=== PATIENT | male | born 1985 | race Caucasian/White ===

== ENCOUNTER 2016-07-31 15:11 | Emergency (ER) | payer OTHER ==
[2016-07-31 17:14] VITALS: BP 138/90
--- NOTE | 2016-07-31 18:01 | ED ---
Irving Basurto SooYoung, scribed for Martell Hernandez MD on 07/31/16 at 1547 . 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 Pt states that he's been in therapy for the past 3-4 months for his depression, and today he "spiraled down." He was washing dishes and had a panic attack. Sx: crying, hyperventilating for approx 10-15 minutes. Denies SI, HI. Pt is not on any medications. He states his sleep and appetite have been OK. - History Of Current Complaint Chief Complaint: EDMentalHealth Stated Complaint: MHE Time Seen by Provider: 07/31/16 15:25 Hx Obtained From: Patient Onset/Duration: Still Present Timing: Constant Severity Initially: Moderate Severity Currently: Moderate Associated Signs And Symptoms: Positive: Recently Depressed - Allergies/Home Medications Allergies/Adverse Reactions: Allergies Allergy/AdvReac Type Severity Reaction Status Date / Time No Known Drug Allergy Allergy none Verified 07/31/16 15:13 PMH/Surg Hx/FS Hx/Imm Hx Previously Healthy: No Psychiatric History: Reports: Hx Depression - Immunization History Date of Tetanus Vaccine: unsure but states UTD Infectious Disease History: No Infectious Disease History: Denies: Traveled Outside the [place] in Last 30 Days - Social History Occupation: Employed Full-time Lives: With Family Alcohol Use: Rare Hx Substance Use: No Substance Use Type: Reports: None Hx Tobacco Use: No Smoking Status (MU): Never Smoked Tobacco Review of Systems Negative: Fever Positive: Depressed All Other Systems Reviewed And Are Negative: Yes Physical Exam Triage Information Reviewed: Yes Vital Signs On Initial Exam: Initial Vitals Temp Pulse Resp BP Pulse Ox 97.6 F 69 18 155/92 99 07/31/16 15:13 07/31/16 15:13 07/31/16 15:13 07/31/16 15:13 07/31/16 15:13 Vital Signs Reviewed: Yes Appearance: Positive: Well-Appearing, No Pain Distress Skin: Positive: Warm, Skin Color Reflects Adequate Perfusion, Dry Head/Face: Positive: Normal Head/Face Inspection Eyes: Positive: Normal ENT: Positive: Normal ENT inspection Neck: Positive: Supple, Nontender Respiratory/Lung Sounds: Positive: Clear to Auscultation, Breath Sounds Present Cardiovascular: Positive: RRR Abdomen Description: Positive: Nontender, Soft Bowel Sounds: Positive: Present Musculoskeletal: Positive: Normal Neurological: Positive: Normal Psychiatric: Positive: Other - pos: flat affect Diagnostics - Vital Signs Vital Signs Temp Pulse Resp BP Pulse Ox 07/31/16 15:13 97.6 F 69 18 155/92 99 - Laboratory Lab Statement: Any lab studies that have been ordered have been reviewed, and results considered in the medical decision making process. Altered Mental Statu Course/Dx - Course Course Of Treatment: Medically cleared for MHE at 1530 - Diagnoses Discharge Diagnoses: Adjustment disorder with anxiety - Provider Notifications Discussed Care Of Patient With: Dr. Zavaleta Time Discussed With Above Provider: 19:00 - change of shift Discharge - Discharge Plan Condition: Stable Disposition: HOME Referrals: No Primary Care Phys,NOPCP [Primary Care Provider] - The documentation as recorded by the Irving mart SooYoung accurately reflects the service I personally performed and the decisions made by me, Martell Hernandze MD.
== END 2016-07-31 17:43 | disposition home or self-care (01) ==
LOC: ED 15:11
DX: F43.22 Adjustment disorder with anxiety (principal); F32.9 Major depressive disorder, single episode, unspecified
CPT/HCPCS: 99282

== ENCOUNTER 2016-10-22 10:09 | Emergency (ER) | payer OTHER ==
[2016-10-22 11:11] LABS: Hematocrit 50 % (42-52); Hemoglobin 16.9 g/dl (14.0-18.0); Mean Corpuscular HGB Conc 34 g/dl (31-36); Mean Corpuscular Hemoglobin 30 pg (27-31); Mean Corpuscular Volume 88 fL (80-94); Mean Platelet Volume 8 um3 (7.4-10.4); Red Cell Distribution Width 12 % (10.5-15); White Blood Count 12.9 10^3/ul (3.5-10.8)
--- NOTE | 2016-10-22 11:16 | RAD ---
HISTORY: Shortness of breath, pressure COMPARISONS: None VIEWS: 2: Frontal dual-energy and lateral views of the chest. FINDINGS: CARDIOMEDIASTINAL SILHOUETTE: The cardiomediastinal silhouette is normal. VIKA: The vika are normal. PLEURA: The costophrenic angles are sharp. No pleural abnormalities are noted. LUNG PARENCHYMA: The lungs are clear. ABDOMEN: The upper abdomen is clear. There is no subphrenic gas. BONES AND SOFT TISSUES: No bone or soft tissue abnormalities are noted. OTHER: None. IMPRESSION: NO ACTIVE CARDIOPULMONARY DISEASE.
[2016-10-22 11:35] LABS: Albumin 4.2 g/dL (3.2-5.2); BUN/Creatinine Ratio 12.7 (8-20); C Reactive Protein 6.15 mg/L (< 5.00); Calcium 9.3 mg/dL (8.6-10.3); EGFR Non-African American 86.3 (>60); Globulin 3.1 g/dL (2-4); Total Bilirubin 0.5 mg/dL (0.2-1.0); Total Protein 7.3 g/dL (6.4-8.9)
[2016-10-22 12:03] LABS: Potassium 4.3 mmol/L (3.5-5.0)
[2016-10-22 13:05] VITALS: BP 90/45
--- NOTE | 2016-10-23 17:18 | ED ---
Dung Basurto Aidan, scribed for Neymar Ivan MD on 10/22/16 at 1054 . Shortness of Breath - HPI Summary HPI Summary: 30 y/o male presents to the ED with a complaint of acute, constant, moderate SOB that began when the patient woke up this morning at 0500. He has had similar symptoms before when he last had a humidifier in his room, however, the SOB resolved after leaving the room for several hours. This time, he fell asleep with a humidifier in his room again because his was congested. Pt denies any CP, cough, or fever. He did, however, have a sore throat several days ago. Lastly, he mentioned taking a 2 [address] trip to [place] recently. No other history was mentioned. - History of Current Complaint Chief Complaint: EDShortnessOfBreath Time Seen by Provider: 10/22/16 10:31 Hx Obtained From: Patient Onset/Duration: Sudden Onset, Lasting Hours, Still Present Timing: Constant Current Severity: Moderate Dyspnea At: Rest Aggrevating Factors: Nothing Alleviating Factors: Nothing - unknown Associated Signs & Symptoms: Negative - sore throat that has subsided - Allergy/Home Medications Allergies/Adverse Reactions: Allergies Allergy/AdvReac Type Severity Reaction Status Date / Time No Known Drug Allergy Allergy none Verified 10/22/16 10:09 PMH/Surg Hx/FS Hx/Imm Hx Psychiatric History: Reports: Hx Depression Denies: Hx Eating Disorder, Hx of Violent Episodes Against Others - Immunization History Date of Tetanus Vaccine: unknown Infectious Disease History: No Infectious Disease History: Denies: Traveled Outside the [place] in Last 30 Days - Family History Known Family History: Positive: Hypertension - Social History Occupation: Employed Full-time Lives: With Family Alcohol Use: Rare Hx Substance Use: No Substance Use Type: Reports: None Hx Tobacco Use: No Smoking Status (MU): Never Smoked Tobacco Review of Systems Constitutional: Negative Eyes: Negative ENT: Negative Cardiovascular: Negative All Other Systems Reviewed And Are Negative: Yes Physical Exam - Summary Physical Exam Summary: VITAL SIGNS: Reviewed. GENERAL: Patient is a well-developed and nourished (MALE) who is lying comfortable in the stretcher. Patient is not in any acute respiratory distress. HEAD AND FACE: No signs of trauma. No ecchymosis, hematomas or skull depressions. No sinus tenderness. EYES: PERRLA, EOMI x 2, No injected conjunctiva, no nystagmus. EARS: Hearing grossly intact. Ear canals and tympanic membranes are within normal limits. MOUTH: Oropharynx within normal limits. NECK: Supple, trachea is midline, no adenopathy, no JVD, no carotid bruit, no c- spine tenderness, neck with full ROM. CHEST: Symmetric, no tenderness at palpation LUNGS: Clear to auscultation bilaterally. No wheezing or crackles. CVS: Regular rate and rhythm, S1 and S2 present, no murmurs or gallops appreciated. ABDOMEN: Soft, non-tender. No signs of distention. No rebound no guarding, and no masses palpated. Bowel sounds are normal. EXTREMITIES: FROM in all major joints, no edema, no cyanosis or clubbing. NEURO: Alert and oriented x 3. No acute neurological deficits. Speech is normal and follows commands. SKIN: Dry and warm Triage Information Reviewed: Yes Vital Signs On Initial Exam: Initial Vitals Temp Pulse Resp BP Pulse Ox 97.5 F 85 18 135/84 96 10/22/16 10:09 10/22/16 10:09 10/22/16 10:09 10/22/16 10:09 10/22/16 10:09 Vital Signs Reviewed: Yes - Emeli Coma Scale Coma Scale Total: 15 Diagnostics - Vital Signs Vital Signs Temp Pulse Resp BP Pulse Ox 10/22/16 10:32 18 10/22/16 10:09 97.5 F 85 18 135/84 96 - Laboratory Lab Results: Lab Results 10/22/16 10/22/16 10/22/16 Range/Units 10:50 10:50 10:50 WBC 12.9 H (3.5-10.8) 10^3/ul RBC 5.70 H (4.0-5.4) 10^6/ul Hgb 16.9 (14.0-18.0) g/dl Hct 50 (42-52) % MCV 88 (80-94) fL MCH 30 (27-31) pg MCHC 34 (31-36) g/dl RDW 12 (10.5-15) % Plt Count 163 (150-450) 10^3/ul MPV 8 (7.4-10.4) um3 Neut % (Auto) 79.5 (38-83) % Lymph % (Auto) 13.7 L (25-47) % Columbia % (Auto) 4.4 (1-9) % Eos % (Auto) 1.8 (0-6) % Baso % (Auto) 0.6 (0-2) % Absolute Neuts (auto) 10.2 H (1.5-7.7) 10^3/ul Absolute Lymphs (auto) 1.8 (1.0-4.8) 10^3/ul Absolute Monos (auto) 0.6 (0-0.8) 10^3/ul Absolute Eos (auto) 0.2 (0-0.6) 10^3/ul Absolute Basos (auto) 0.1 (0-0.2) 10^3/ul Absolute Nucleated RBC 0.01 10^3/ul Nucleated RBC % 0.1 D-Dimer, Quantitative < 200 (Less Than 230) ng/mL Sodium 137 (133-145) mmol/L Potassium 4.3 (3.5-5.0) mmol/L Chloride 104 (101-111) mmol/L Carbon Dioxide 27 (22-32) mmol/L Anion Gap 6 (2-11) mmol/L BUN 13 (6-24) mg/dL Creatinine 1.02 (0.67-1.17) mg/dL Est GFR ( Amer) 111.0 (>60) Est GFR (Non-Af Amer) 86.3 (>60) BUN/Creatinine Ratio 12.7 (8-20) Glucose 85 (70-100) mg/dL Lactic Acid (0.5-2.0) mmol/L Calcium 9.3 (8.6-10.3) mg/dL Total Bilirubin 0.50 (0.2-1.0) mg/dL AST 21 (13-39) U/L ALT 39 (7-52) U/L Alkaline Phosphatase 83 (34-104) U/L Total Creatine Kinase 66 (10-223) U/L CK-MB (CK-2) 1.2 (0.6-6.3) ng/mL Myoglobin 15.9 L (17.4-105.7) ng/mL Troponin I 0.00 (<0.04) ng/mL C-Reactive Protein 6.15 H (< 5.00) mg/L B-Natriuretic Peptide ( - 100) pg/mL Total Protein 7.3 (6.4-8.9) g/dL Albumin 4.2 (3.2-5.2) g/dL Globulin 3.1 (2-4) g/dL Albumin/Globulin Ratio 1.4 (1-3) 10/22/16 10/22/16 Range/Units 10:50 10:50 WBC (3.5-10.8) 10^3/ul RBC (4.0-5.4) 10^6/ul Hgb (14.0-18.0) g/dl Hct (42-52) % MCV (80-94) fL MCH (27-31) pg MCHC (31-36) g/dl RDW (10.5-15) % Plt Count (150-450) 10^3/ul MPV (7.4-10.4) um3 Neut % (Auto) (38-83) % Lymph % (Auto) (25-47) % Columbia % (Auto) (1-9) % Eos % (Auto) (0-6) % Baso % (Auto) (0-2) % Absolute Neuts (auto) (1.5-7.7) 10^3/ul Absolute Lymphs (auto) (1.0-4.8) 10^3/ul Absolute Monos (auto) (0-0.8) 10^3/ul Absolute Eos (auto) (0-0.6) 10^3/ul Absolute Basos (auto) (0-0.2) 10^3/ul Absolute Nucleated RBC 10^3/ul Nucleated RBC % D-Dimer, Quantitative (Less Than 230) ng/mL Sodium (133-145) mmol/L Potassium (3.5-5.0) mmol/L Chloride (101-111) mmol/L Carbon Dioxide (22-32) mmol/L Anion Gap (2-11) mmol/L BUN (6-24) mg/dL Creatinine (0.67-1.17) mg/dL Est GFR ( Amer) (>60) Est GFR (Non-Af Amer) (>60) BUN/Creatinine Ratio (8-20) Glucose (70-100) mg/dL Lactic Acid 1.2 (0.5-2.0) mmol/L Calcium (8.6-10.3) mg/dL Total Bilirubin (0.2-1.0) mg/dL AST (13-39) U/L ALT (7-52) U/L Alkaline Phosphatase (34-104) U/L Total Creatine Kinase (10-223) U/L CK-MB (CK-2) (0.6-6.3) ng/mL Myoglobin (17.4-105.7) ng/mL Troponin I (<0.04) ng/mL C-Reactive Protein (< 5.00) mg/L B-Natriuretic Peptide 16 ( - 100) pg/mL Total Protein (6.4-8.9) g/dL Albumin (3.2-5.2) g/dL Globulin (2-4) g/dL Albumin/Globulin Ratio (1-3) Result Diagrams: 10/22/16 10:50 10/22/16 10:50 Lab Statement: Any lab studies that have been ordered have been reviewed, and results considered in the medical decision making process. - Radiology CHEST X-RAY Xray Interpretation: No Acute Changes - IMPRESSION: No active cardiopulmonary disease is noted. Radiology Interpretation Completed By: Radiologist - EKG EKG 1016 Cardiac Rate: NL - 78 BPM EKG Rhythm: Sinus Rhythm EKG Interpretation: SINUS RHYTHM, NO ST ELEVATIONS Course/Dx - Course Course Of Treatment: 30 y/o male presents with acute, constant, moderate SOB that began at 0500 this morning. Imaging reviewed and was negative and low suspicion for PE. Tests results within normal limits, despite a slight increase in WBC count. D-dimer is less than 200 and therefore negative. Chest x-ray shows no acute pathology. Troponin was 0.00. and he has no Chest pain therefore low suspicion for a PE. Pt continued saturating at 98% room air. The patient will be discharged with a diagnosis of dyspnea. I discussed all the findings and test results with the patient. Patient was instructed to return to the emergency room immediately if any of the symptoms return or worsens. Plan of care was discussed with the patient and understands and agrees. All questions were answered at patient satisfaction. There were no further complaints or concerns. Lung exam before discharge: CTA B/L. Good air exchange. No wheezing or crackles heard. CVS: S1 and S2 present. No murmurs appreciated. Patient is alert and oriented x 3. Patient is hemodynamically stable. Patient will be discharged home with follow up PCP in the next 2-3 days - Diagnoses Differential Diagnosis/HQI/PQRI: Positive: Asthma, CHF, COPD Exacerbation, Pneumonia Provider Diagnoses: Dyspnea Discharge - Discharge Plan Condition: Stable Disposition: HOME Discharge Disposition Comment: Please follow up with a primary care physician within 3 days. Patient Education Materials: Dyspnea (ED) Referrals: No Primary Care Phys,NOPCP [Primary Care Provider] - [facility] [Outside] The documentation as recorded by the Dung mart Aidan accurately reflects the service I personally performed and the decisions made by , Neymar Ivan MD.
== END 2016-10-22 13:10 | disposition home or self-care (01) ==
LOC: ED 10:09
DX: R06.00 Dyspnea, unspecified (principal)
CPT/HCPCS: 36415; 71020; 80053; 82550; 82553; 83605; 83874; 83880; 84484; 85025; 85379; 86140; 93005; 99283

== ENCOUNTER 2017-02-05 19:05 | Emergency (ER) | payer OTHER ==
[2017-02-05 19:14] VITALS: BP 129/82
[2017-02-05] MEDS ORDERED: Amoxicillin/Clavulanate TAB* 875 MG PO ONE (20:00)
--- NOTE | 2017-02-05 20:01 | UC ---
Throat Pain/Nasal Manfred HPI - HPI Summary HPI Summary: worsening sinus pain and pressure over the past 2 weeks has tried OTC treatment without effect, worsening pain in frontal and max sinus bilaterally - History of Current Complaint Hx Obtained From: Patient Onset/Duration: Gradual Onset, Lasting Weeks - 2, Worse Since - past 2 days Severity: Moderate Pain Intensity: 6 Pain Scale Used: 0-10 Numeric Cough: None Associated Signs & Symptoms: Positive: Sinus Discomfort <Dona Villagomez - Last Filed: 02/05/17 20:16> <Sharyn Lucero - Last Filed: 02/05/17 20:34> - History of Current Complaint Chief Complaint: UCRespiratory Stated Complaint: SINUS INFECTION Time Seen by Provider: 02/05/17 19:47 - Allergies/Home Medications Allergies/Adverse Reactions: Allergies Allergy/AdvReac Type Severity Reaction Status Date / Time No Known Drug Allergy Allergy none Verified 02/05/17 19:14 Home Medications: Home Medications Oxymetazoline HCl [Afrin Nasal Union] 0.05 % NA 02/05/17 [History] Pseudoephedrine HCl [Sudafed 12 Hour] 120 mg PO 02/05/17 [History] PMH/Surg Hx/FS Hx/Imm Hx Previously Healthy: Yes - Surgical History Surgical History: None - Family History Known Family History: Positive: Hypertension - Social History Occupation: Student Lives: With Family Alcohol Use: None Substance Use Type: None Smoking Status (MU): Never Smoked Tobacco <Dona Villagomez - Last Filed: 02/05/17 20:16> Review of Systems Constitutional: Negative Skin: Negative Eyes: Negative ENT: Negative, Nasal Discharge, Sinus Congestion, Sinus Pain/Tenderness Respiratory: Negative Cardiovascular: Negative Gastrointestinal: Negative Genitourinary: Negative Motor: Negative Neurovascular: Negative Musculoskeletal: Negative Neurological: Negative Psychological: Negative Is Patient Immunocompromised?: No All Other Systems Reviewed And Are Negative: Yes <Dona Villagomez - Last Filed: 02/05/17 20:16> Physical Exam Triage Information Reviewed: Yes Appearance: Well-Appearing, No Pain Distress, Well-Nourished Vital Signs: Initial Vital Signs Temp 97.8 F 02/05/17 19:08 Pulse 95 02/05/17 19:08 Resp 18 02/05/17 19:08 BP 129/82 02/05/17 19:08 Pulse Ox 98 02/05/17 19:08 Vital Signs Reviewed: Yes Eye Exam: Normal Eyes: Positive: Conjunctiva Clear ENT Exam: Normal ENT: Positive: Normal ENT inspection, Hearing grossly normal, Pharynx normal, Nasal congestion, TMs normal. Negative: Nasal drainage, Tonsillar swelling, Tonsillar exudate, Trismus, Muffled/hoarse voice Dental Exam: Normal Neck exam: Normal Neck: Positive: Supple, Nontender, No Lymphadenopathy Respiratory Exam: Normal Respiratory: Positive: Chest non-tender, Lungs clear, Normal breath sounds, No respiratory distress, No accessory muscle use Cardiovascular Exam: Normal Cardiovascular: Positive: RRR, Pulses Normal, Brisk Capillary Refill Musculoskeletal Exam: Normal Musculoskeletal: Positive: Strength Intact, ROM Intact, No Edema Neurological Exam: Normal Neurological: Positive: Alert, Muscle Tone Normal Psychological Exam: Normal Skin Exam: Normal <Dona Villagomez - Last Filed: 02/05/17 20:16> Vital Signs: Initial Vital Signs Temp 97.8 F 02/05/17 19:08 Pulse 95 02/05/17 19:08 Resp 18 02/05/17 19:08 BP 129/82 02/05/17 19:08 Pulse Ox 98 02/05/17 19:08 <Sharyn Lucero - Last Filed: 02/05/17 20:34> Throat Pain/Nasal Course/Dx - Course Assessment/Plan: Augmentin, flonase, tylenol, ibufprofen, sudafed prn follow with pcp prn - Differential Dx/Diagnosis Differential Diagnosis/HQI/PQRI: Laryngitis, Otitis Media, Pharyngitis, Sinusitis, URI Provider Diagnoses: Acute rhinosinusitis <Dona Villagomez - Last Filed: 02/05/17 20:16> Discharge <Dona Villagomez - Last Filed: 02/05/17 20:16> <Sharyn Lucero - Last Filed: 02/05/17 20:34> - Discharge Plan Condition: Stable Disposition: HOME Prescriptions: Amoxicillin/Clavulanate TAB* [Augmentin TAB 875*] 875 mg PO BID #19 tab Fluticasone NASAL SPRAY 50MCG* [Flonase NASAL SPRAY 50MCG*] 2 spray BOTH NARES DAILY #1 btl Patient Education Materials: Sinusitis (ED), How to Use Nasal Union (ED) Referrals: Jaylon Cherry, MACHINE OPERATIONS SUPERVISOR [Primary Care Provider] - If Needed Attestations User Type: Provider - I was available for consult. This patient was seen by the DONNA. The patient was not presented to, seen by, or examined by me. -Liane <Sharyn Lucero - Last Filed: 02/05/17 20:34> Attestation Statement User Type: Provider - I was available for consult. This patient was seen by the DONNA. The patient was not presented to, seen by, or examined by me. -Liane <Sharyn Lucero - Last Filed: 02/05/17 20:34>
== END 2017-02-05 20:16 | disposition home or self-care (01) ==
LOC: UCEAST 19:05
DX: J01.90 Acute sinusitis, unspecified (principal)
CPT/HCPCS: 99212; A9270-GY; G0463

== ENCOUNTER 2017-05-03 09:15 | Emergency (ER) | payer BC, OTHER ==
[2017-05-03 09:49] VITALS: BP 136/80
--- NOTE | 2017-05-03 10:07 | UC ---
UC Dental HPI - HPI Summary HPI Summary: burning and redness in mouth and near lips feels like when he had thrush in the past - History of Current Complaint Hx Obtained From: Patient Onset/Duration: Gradual Onset, Lasting Days, Still Present Severity: Moderate <Dona Villagomez - Last Filed: 05/04/17 19:29> <NicSharyn - Last Filed: 05/05/17 09:12> - History of Current Complaint Chief Complaint: UCGeneralIllness Stated Complaint: PEELING SKIN ON LIPS Time Seen by Provider: 05/03/17 10:04 - Allergies/Home Medications Allergies/Adverse Reactions: Allergies Allergy/AdvReac Type Severity Reaction Status Date / Time No Known Drug Allergy Allergy none Verified 02/05/17 19:14 PMH/Surg Hx/FS Hx/Imm Hx Previously Healthy: Yes - Surgical History Surgical History: None - Family History Known Family History: Positive: Hypertension - Social History Occupation: Employed Full-time Lives: With Family Alcohol Use: None Substance Use Type: None Smoking Status (MU): Never Smoked Tobacco <Dona Villagomez - Last Filed: 05/04/17 19:29> Review of Systems Constitutional: Negative Skin: Negative Eyes: Negative ENT: Other - pain redness and white rash inside of mouth Respiratory: Negative Cardiovascular: Negative Gastrointestinal: Negative Genitourinary: Negative Motor: Negative Neurovascular: Negative Musculoskeletal: Negative Neurological: Negative Psychological: Negative Is Patient Immunocompromised?: No All Other Systems Reviewed And Are Negative: Yes <Dona Villagomez - Last Filed: 05/04/17 19:29> Physical Exam Triage Information Reviewed: Yes Appearance: Well-Appearing, No Pain Distress, Well-Nourished, Other: - deines fevers chills or night sweats Vital Signs: Initial Vital Signs Temp 97.8 F 05/03/17 09:44 Pulse 69 05/03/17 09:44 Resp 16 05/03/17 09:44 BP 136/80 05/03/17 09:44 Pulse Ox 98 05/03/17 09:44 Vital Signs Reviewed: Yes Eye Exam: Normal Eyes: Positive: Conjunctiva Clear ENT Exam: Normal ENT: Positive: Normal ENT inspection, Hearing grossly normal, Pharyngeal erythema, TMs normal, Uvula midline. Negative: Tonsillar swelling, Tonsillar exudate, Sinus tenderness Dental Exam: Normal Neck exam: Normal Neck: Positive: Supple, Nontender, No Lymphadenopathy Respiratory Exam: Normal Respiratory: Positive: Chest non-tender, Lungs clear, Normal breath sounds, No respiratory distress, No accessory muscle use Cardiovascular Exam: Normal Cardiovascular: Positive: RRR, No Murmur, Pulses Normal, Brisk Capillary Refill Musculoskeletal Exam: Normal Musculoskeletal: Positive: Strength Intact, ROM Intact, No Edema Neurological Exam: Normal Neurological: Positive: Alert, Muscle Tone Normal Psychological Exam: Normal Skin Exam: Normal <Dona Villagomez - Last Filed: 05/04/17 19:29> Vital Signs: Initial Vital Signs Temp 97.8 F 05/03/17 09:44 Pulse 69 05/03/17 09:44 Resp 16 05/03/17 09:44 BP 136/80 05/03/17 09:44 Pulse Ox 98 05/03/17 09:44 <Sharyn Lucero - Last Filed: 05/05/17 09:12> Dental Complaint Course/Dx - Course Course Of Treatment: mycelex troches 5 times a day for up to 14 days, follow with Dr. Borges - Differential Dx/Diagnosis Provider Diagnoses: Thrush <Dona Villagomez - Last Filed: 05/04/17 19:29> Discharge <Dona Villagomez - Last Filed: 05/04/17 19:29> <Sharyn Lucero - Last Filed: 05/05/17 09:12> - Discharge Plan Condition: Stable Disposition: HOME Prescriptions: Clotrimazole TONY* [Mycelex Tony*] 10 mg MT SEE INSTRUCTIONS #70 tony Patient Education Materials: Oral Candidiasis (ED) Referrals: Jaylon Cherry, SOCIOLOGY RESEARCH ASSISTANT [Primary Care Provider] - If Needed Attestation Statement User Type: Provider - I was available for consult. This patient was seen by the DONNA. The patient was not presented to, seen by, or examined by me. -Liane <Sharyn Lucero - Last Filed: 05/05/17 09:12>
== END 2017-05-03 10:26 | disposition home or self-care (01) ==
LOC: UCEAST 09:15
DX: B37.9 Candidiasis, unspecified (principal)
CPT/HCPCS: 99212; G0463

== ENCOUNTER 2017-10-02 11:15 | Emergency (ER) | payer BC ==
[2017-10-02 11:26] VITALS: BP 124/86
--- NOTE | 2017-10-02 11:48 | UC ---
Raquel Basurto Emily, scribed for Alireza Guerrero MD on 10/02/17 at 1141 . Skin Complaint HPI - HPI Summary HPI Summary: In Room: This patient is a 31 year old M presenting to [facility] care with a chief complaint of white rash on lips that began yesterday morning. The patient rates the pain 0/10 in severity. Symptoms aggravated by nothing. Symptoms alleviated by nothing. Patient reports increased sensitivity and tingling over rash. Patient denies white rash on tongue, nausea, vomiting, and urinary symptoms. Pt reports having thrush on the lips multiple times. MD: Vital signs stable. BP probably related to current condition. Visit history noncontributory to present complaint. Nurses: Pt is here for possible thrush. Pt sates he had thrush about 6 months ago. - History of Current Complaint Chief Complaint: UCSkin Time Seen by Provider: 10/02/17 11:20 Stated Complaint: SKIN COMPLAINT Hx Obtained From: Patient Onset/Duration: Sudden Onset, Lasting Days, Still Present Skin Exposure Onset/Duration: Days Ago Timing: Constant Onset Severity: Mild Current Severity: Mild Pain Intensity: 0 Pain Scale Used: 0-10 Numeric Location: Face Aggravating Factor(s): Nothing Alleviating Factor(s): Nothing - Allergy/Home Medications Allergies/Adverse Reactions: Allergies Allergy/AdvReac Type Severity Reaction Status Date / Time No Known Allergies Allergy Verified 10/02/17 11:26 Home Medications: Home Medications Escitalopram Oxalate [Lexapro 10 mg] 10 mg PO DAILY 10/02/17 [History Confirmed 10/02/17] Review of Systems Skin: Other - Positive white rash on lips and increased sensitivity. Negative white rash on tongue Gastrointestinal: Other - Negative nausea and vomiting Genitourinary: Negative Neurological: Other - Positive tingling over rash All Other Systems Reviewed And Are Negative: Yes PMH/Surg Hx/FS Hx/Imm Hx Previously Healthy: Yes Endocrine History: Other Other Endocrine History: Negative diabetes Cardiovascular History: Other Other Cardiovascular History: Negative HTN - Surgical History Surgical History: None - Family History Known Family History: Positive: Hypertension, Diabetes - Social History Occupation: Employed Full-time Lives: With Family Alcohol Use: None Substance Use Type: None Smoking Status (MU): Never Smoked Tobacco Physical Exam - Summary Physical Exam Summary: Appearance: The patient is well-appearing, is in no pain distress, and is well- nourished. Eyes: Conjunctiva are clear. ENT: The hearing is grossly normal, the pharynx is normal, and the TMs are normal. There is no muffled or hoarse voice. WHITE COATING ON THE TONGUE. Neck: The neck is supple and there is no lymphadenopathy. Respiratory: The chest is nontender. The lungs are clear, there are normal breath sounds, and there is no respiratory distress. Cardiovascular: Heart is regular rate and rhythm. There is no murmur. Abdomen: The abdomen is soft and nontender. There is no organomegaly. Bowel sounds: present Musculoskeletal: Strength is intact. The patient moves all extremities. Neurological: The patient is alert. Psychological: The patient displays age appropriate behavior Skin: Negative for rashes. Triage Information Reviewed: Yes Vital Signs: Initial Vital Signs Temp 97.9 F 10/02/17 11:23 Pulse 75 10/02/17 11:23 Resp 18 10/02/17 11:23 BP 124/86 10/02/17 11:23 Pulse Ox 98 10/02/17 11:23 Vital Signs Reviewed: Yes Course/Dx - Course Course Of Treatment: 31 year old healthy male complaining of sensitivity of his lips. In the past he has never seen white coating to his lips, but has been diagnosed with oral thrush previously. His physical exam revealed white coating on the tongue. I will give him clotrimazole troches. Medications have been included in the original chart and have been reviewed. Patient is Urgent/ Emergent. BP elevated due to current condition w/o HTN in past medical history. - Diagnoses Provider Diagnoses: Oral candidiasis Discharge - Sign-Out/Discharge Documenting (check all that apply): Discharge/Admit/Transfer - Discharge Plan Condition: Stable Disposition: HOME Prescriptions: Clotrimazole TONY* [Mycelex Tony*] 10 mg MT SEE INSTRUCTIONS #70 tony MDD 5 Patient Education Materials: Oral Candidiasis (ED) Referrals: Jaylon Cherry NP [Primary Care Provider] - Additional Instructions: SEEK TREATMENT AT THE EMERGENCY DEPARTMENT IF SYMPTOMS WORSEN OR IF NEW SYMPTOMS DEVELOP. FOLLOW UP WITH PRIMARY CARE. Your blood pressure reading today was 124/86, indicating PREHYPERTENSION. Follow -up with your primary care provider within 4 weeks for blood pressure readings and further evaluation as needed. WE DISCUSSED: 1. You have oral candidiasis. 2. Use clotrimazole troches. 3. Follow up if you are not improving in 10 days. Sooner for any worsening of your condition. - Billing Disposition and Condition Condition: STABLE Disposition: HOME The documentation as recorded by the Raquel mart Emily accurately reflects the service I personally performed and the decisions made by me, Alireza Guerrero MD.
== END 2017-10-02 11:55 | disposition home or self-care (01) ==
LOC: UCEAST 11:15
DX: B37.0 Candidal stomatitis (principal); R03.0 Elevated blood-pressure reading, without diagnosis of hypertension
CPT/HCPCS: 99212; G0463